=== PATIENT | male | born 1995 | race Caucasian/White ===

== ENCOUNTER → 2019-11-06 | Outpatient (CLI) | payer SELFPAY ==
[2019-11-06 18:20] LABS: CHLAM PCR DETECTED (NOT DETECT)
== END ==
LOC: OD 16:17
PROVIDERS: ATTEND Nurse Practitioner Acute Care
DX: R30.0 Dysuria (principal); Z20.2 Contact with and (suspected) exposure to infections with a predominantly sexual mode of transmission
CPT/HCPCS: 87491; 87591